=== PATIENT | male | born 1940 | race Caucasian/White ===

== ENCOUNTER 2020-12-13 15:11 | Inpatient (IN) | payer OTHER ==
[2020-12-13] MEDS ORDERED: LACTATED RINGERS SOLUTION 1,000 ML/1,000 ML INFUS.BAG IV STA (16:13)
[2020-12-13] MEDS ORDERED: ACETAMINOPHEN 1000 MG/100 ML VIAL (NON FORMULARY) IVPB ONE (16:14)
[2020-12-13] MEDS ORDERED: ACETAMINOPHEN INJECTION 100 ML IVPB ONE (16:24)
[2020-12-13] MEDS ORDERED: PIPERACILLIN/TAZOB 4.5 GM 4.5 GM in DEXTROSE 5%-WATER 100 ML IVPB ONE (16:50)
[2020-12-13] MEDS ORDERED: VANCOMYCIN 1,000 MG in DEXTROSE 5%-WATER - 250 ML IVPB ONE (16:50)
[2020-12-13 17:00] LABS: LACTIC ACID 2.6 mmol/L (0.4-2.0)
[2020-12-13 17:05] LABS: EPI CELLS 12 /uL (0-25.1); HYALINE CASTS 2 /uL (0-3.1); URINE APPEARANCE CLEAR; URINE BACTERIA 63 /uL (0-1359); URINE BILIRUBIN NEGATIVE (NEGATIVE); URINE COLOR YELLOW; URINE GLUCOSE (UA) NEGATIVE (NEGATIVE); URINE KETONE TRACE (NEGATIVE); URINE LEUK ESTERASE NEGATIVE (NEGATIVE); URINE NITRITE NEGATIVE (NEGATIVE); URINE PROTEIN 1+ (NEGATIVE); URINE RBC 13 /uL (0-23.9); URINE UROBILINOGEN 0.2 mg/dL (0.2-1.0); URINE WBC 7 /uL (0-25.8)
[2020-12-13 17:15] LABS: BASO % 0.8 % (0-2.0); HEMATOCRIT 40.9 % (35.4-49); HEMOGLOBIN 13.2 GM/dL (11.7-16.9); LYMPH % 4.9 % (8-40); MCH 27.8 pg (25.7-33.7); MCHC 32.3 g/dl (32.0-35.9); MEAN CELL VOLUME 86.1 fl (80-96); MEAN PLT VOLUME 9.1 fl (7.5-11.1); MONO % 9.2 % (3.8-10.2); NEUT % 85.1 % (42.8-82.8); PLATELET COUNT 87 K/MM3 (134-434); RBC 4.75 M/mm3 (4.00-5.60); RDW 14.1 % (11.9-15.9); WHITE BLOOD COUNT 3.7 K/mm3 (4.0-10.0)
[2020-12-13 17:23] LABS: INR 1.1 (0.83-1.09); PROTHROMBIN TIME (PATIENT) 13.5 SEC (9.7-13.0)
[2020-12-13] MEDS ORDERED: PIPERACILLIN/TAZOB 4.5 GM 4.5 GM/100 ML BAG IVPB ONE (17:23)
[2020-12-13] MEDS ORDERED: VANCOMYCIN 1 GRAM (PRE-DOCKED) 1,000 MG/250 ML BAG IVPB ONE (17:23)
[2020-12-13 17:25] LABS: ACTIVATED PTT 28.7 SECONDS (25.2-36.5)
[2020-12-13 17:39] LABS: CALCIUM 8.4 mg/dL (8.5-10.1)
[2020-12-13 17:40] LABS: ALBUMIN 3.5 g/dl (3.4-5.0); BLOOD UREA NITROGEN 63.4 mg/dL (7-18)
[2020-12-13 17:43] LABS: CREATININE 2.6 mg/dL (0.55-1.3)
[2020-12-13 17:44] LABS: BILIRUBIN,TOTAL 0.3 mg/dL (0.2-1); TOT PROT 6.8 g/dl (6.4-8.2)
[2020-12-13] MEDS ORDERED: INSULIN REGULAR HUMAN 100 UNITS/ML *VIAL IVPUSH ONE (18:34)
[2020-12-13] MEDS ORDERED: DEXTROSE 50%-WATER - 25 GM/50 ML VIAL IVPUSH ONE (18:35)
[2020-12-13] MEDS ORDERED: DEXTROSE 50%-WATER 25 GM/50 ML DISP.SYRIN ONE (18:59)
[2020-12-13] MEDS ORDERED: SODIUM CHLORIDE 0.9% 500 ML INFUS.BAG IV ONE (19:32)
[2020-12-13 20:42] LABS: CALCIUM 7.8 mg/dL (8.5-10.1)
[2020-12-13 20:43] LABS: BLOOD UREA NITROGEN 63.7 mg/dL (7-18)
[2020-12-13 20:46] LABS: CREATININE 2.7 mg/dL (0.55-1.3)
[2020-12-13 20:53] LABS: YEAST NEGATIVE (NEGATIVE)
[2020-12-13] MEDS ORDERED: SODIUM CHLORIDE 1,000 ML IV SCH (22:15)
[2020-12-13] MEDS ORDERED: PIPERACILLIN/TAZOB 2.25 GM 2.25 GM in DEXTROSE 5%-WATER - 50 ML IVPB SCH (22:45)
[2020-12-13] MEDS: INSULIN SLIDING SCALE (NOVOLOG) 1 VIAL SQ SCH (22:53)
[2020-12-13] MEDS ORDERED: DEXTROSE 5%-WATER - 50 ML IVPB ONE (23:02)
[2020-12-13] MEDS ORDERED: PIPERACILLIN/TAZOBACTAM 2.25 GM VIAL IVPB ONE (23:02)
[2020-12-14] MEDS: PIPERACILLIN/TAZOB 2.25 GM 2.25 GM in DEXTROSE 5%-WATER - 50 ML IVPB SCH ×3 (00:30→17:54)
[2020-12-14] MEDS: HEPARIN NA (PORCINE) 5,000 UNITS/ML 1ML VIAL SQ SCH ×4 (01:23→21:54)
[2020-12-14] MEDS ORDERED: PIPERACILLIN/TAZOB 4.5 GM 4.5 GM in DEXTROSE 5%-WATER 100 ML IVPB SCH (02:00)
[2020-12-14] MEDS ORDERED: ACETAMINOPHEN 1000 MG/100 ML VIAL (NON FORMULARY) IVPB ONE (02:13)
[2020-12-14] MEDS ORDERED: ACETAMINOPHEN INJECTION 100 ML IVPB ONE (02:20)
[2020-12-14] MEDS ORDERED: DEXTROSE 5%-WATER - 50 ML IVPB ONE ×3 (05:15→17:43)
[2020-12-14] MEDS ORDERED: PIPERACILLIN/TAZOBACTAM 2.25 GM VIAL IVPB ONE ×3 (05:15→17:43)
[2020-12-14] MEDS: INSULIN SLIDING SCALE (NOVOLOG) 1 VIAL SQ SCH ×4 (06:07→21:54)
[2020-12-14 07:46] LABS: BASO % 0.3 % (0-2.0); EOS % 0.1 % (0-4.5); HEMATOCRIT 38.5 % (35.4-49); HEMOGLOBIN 12.6 GM/dL (11.7-16.9); LYMPH % 9.9 % (8-40); MCH 28.2 pg (25.7-33.7); MCHC 32.8 g/dl (32.0-35.9); MEAN CELL VOLUME 85.8 fl (80-96); MEAN PLT VOLUME 9.6 fl (7.5-11.1); MONO % 9.5 % (3.8-10.2); NEUT % 80.2 % (42.8-82.8); PLATELET COUNT 90 K/MM3 (134-434); RBC 4.49 M/mm3 (4.00-5.60); RDW 13.8 % (11.9-15.9)
[2020-12-14 08:03] LABS: CALCIUM 7.8 mg/dL (8.5-10.1)
[2020-12-14 08:04] LABS: ALBUMIN 3.2 g/dl (3.4-5.0); BLOOD UREA NITROGEN 54.5 mg/dL (7-18); MAGNESIUM 1.4 mg/dL (1.8-2.4)
[2020-12-14 08:07] LABS: CREATININE 2.6 mg/dL (0.55-1.3); PHOSPHOROUS 2.6 mg/dL (2.5-4.9)
[2020-12-14 08:09] LABS: BILIRUBIN,TOTAL 0.5 mg/dL (0.2-1)
[2020-12-14] MEDS ORDERED: SODIUM CHLORIDE 1,000 ML IV SCH (11:20)
[2020-12-14] MEDS: CHOLECALCIFEROL (VIT D3) 400 UNIT (10 MCG) TABLET PO SCH (11:37)
[2020-12-14] MEDS: ZINC SULFATE 220 MG CAPSULE (FP) PO SCH (11:37)
[2020-12-14] MEDS: ASCORBIC ACID 500 MG TABLET (FP) PO SCH ×2 (11:38→21:54)
[2020-12-14] MEDS: ACETAMINOPHEN 325 MG TABLET (FP) PO PRN (22:07)
[2020-12-14] MEDS ORDERED: PIPERACILLIN/TAZOB 2.25 GM 2.25 GM in DEXTROSE 5%-WATER - 50 ML IVPB SCH (22:45)
[2020-12-15] MEDS ORDERED: PIPERACILLIN/TAZOBACTAM 2.25 GM VIAL IVPB ONE ×3 (00:55→17:49)
[2020-12-15] MEDS ORDERED: DEXTROSE 5%-WATER - 50 ML IVPB ONE ×3 (00:56→17:49)
[2020-12-15] MEDS: PIPERACILLIN/TAZOB 2.25 GM 2.25 GM in DEXTROSE 5%-WATER - 50 ML IVPB SCH ×3 (01:13→18:21)
[2020-12-15] MEDS: HEPARIN NA (PORCINE) 5,000 UNITS/ML 1ML VIAL SQ SCH (05:58)
[2020-12-15] MEDS: INSULIN SLIDING SCALE (NOVOLOG) 1 VIAL SQ SCH ×4 (06:02→21:56)
[2020-12-15 08:45] LABS: BASO % 0.1 % (0-2.0); HEMATOCRIT 40.1 % (35.4-49); HEMOGLOBIN 13.2 GM/dL (11.7-16.9); MCH 28.2 pg (25.7-33.7); MEAN CELL VOLUME 85.3 fl (80-96); MEAN PLT VOLUME 8.8 fl (7.5-11.1); MONO % 7.8 % (3.8-10.2); NEUT % 81.1 % (42.8-82.8); PLATELET COUNT 109 K/MM3 (134-434); RDW 13.8 % (11.9-15.9); WHITE BLOOD COUNT 3.9 K/mm3 (4.0-10.0)
[2020-12-15 09:21] LABS: BLOOD UREA NITROGEN 39.9 mg/dL (7-18); CALCIUM 8.5 mg/dL (8.5-10.1)
[2020-12-15 09:24] LABS: CREATININE 2.6 mg/dL (0.55-1.3)
[2020-12-15 09:25] LABS: BILIRUBIN,TOTAL 0.4 mg/dL (0.2-1); TOT PROT 6.2 g/dl (6.4-8.2)
[2020-12-15] MEDS ORDERED: PT OWN MED DRAWER 7, Y5N ONE ×2 (10:21→13:52)
[2020-12-15] MEDS: CHOLECALCIFEROL (VIT D3) 400 UNIT (10 MCG) TABLET PO SCH (10:32)
[2020-12-15] MEDS: ASCORBIC ACID 500 MG TABLET (FP) PO SCH ×2 (10:32→21:54)
[2020-12-15] MEDS: ZINC SULFATE 220 MG CAPSULE (FP) PO SCH (10:32)
[2020-12-15] MEDS: ACETAMINOPHEN 325 MG TABLET (FP) PO PRN (10:42)
[2020-12-15] MEDS ORDERED: ENOXAPARIN NA (PORCINE) 30 MG/0.3 ML DISP.SYRIN SQ SCH (13:15)
[2020-12-15] MEDS ORDERED: MAGNESIUM 2GM/50ML STERILE WATER IVPB IVPB ONE (13:30)
[2020-12-15] MEDS: ENOXAPARIN NA (PORCINE) 30 MG/0.3 ML DISP.SYRIN SQ SCH (14:22)
[2020-12-15] MEDS: SODIUM CHLORIDE 1,000 ML IV SCH (15:00)
[2020-12-15] MEDS: DEXAMETHASONE SOD PHOSPHATE 4 MG/1 ML VIAL IVPUSH SCH (18:20)
[2020-12-16] MEDS ORDERED: DEXTROSE 5%-WATER - 50 ML IVPB ONE ×3 (00:38→17:29)
[2020-12-16] MEDS ORDERED: PIPERACILLIN/TAZOBACTAM 2.25 GM VIAL IVPB ONE ×3 (00:38→17:28)
[2020-12-16] MEDS: PIPERACILLIN/TAZOB 2.25 GM 2.25 GM in DEXTROSE 5%-WATER - 50 ML IVPB SCH ×3 (01:22→18:02)
[2020-12-16] MEDS: SODIUM CHLORIDE 1,000 ML IV SCH ×2 (04:39→19:00)
[2020-12-16] MEDS: INSULIN SLIDING SCALE (NOVOLOG) 1 VIAL SQ SCH ×4 (06:06→22:22)
[2020-12-16] MEDS ORDERED: PT OWN MED DRAWER 7, Y5N ONE (10:17)
[2020-12-16] MEDS: ENOXAPARIN NA (PORCINE) 30 MG/0.3 ML DISP.SYRIN SQ SCH (10:27)
[2020-12-16] MEDS: CHOLECALCIFEROL (VIT D3) 400 UNIT (10 MCG) TABLET PO SCH (10:28)
[2020-12-16] MEDS: ZINC SULFATE 220 MG CAPSULE (FP) PO SCH (10:28)
[2020-12-16] MEDS: ASCORBIC ACID 500 MG TABLET (FP) PO SCH ×2 (10:29→22:09)
[2020-12-16] MEDS: DEXAMETHASONE SOD PHOSPHATE 4 MG/1 ML VIAL IVPUSH SCH (11:40)
[2020-12-16] MEDS: APIXABAN 5 MG TABLET PO SCH (22:09)
[2020-12-17] MEDS ORDERED: PIPERACILLIN/TAZOBACTAM 2.25 GM VIAL IVPB ONE ×4 (01:07→21:22)
[2020-12-17] MEDS ORDERED: DEXTROSE 5%-WATER - 50 ML IVPB ONE ×4 (01:07→21:22)
[2020-12-17] MEDS: PIPERACILLIN/TAZOB 2.25 GM 2.25 GM in DEXTROSE 5%-WATER - 50 ML IVPB SCH ×3 (01:33→18:29)
[2020-12-17] MEDS: SODIUM CHLORIDE 1,000 ML IV SCH (05:41)
[2020-12-17] MEDS: INSULIN SLIDING SCALE (NOVOLOG) 1 VIAL SQ SCH ×4 (06:20→23:22)
[2020-12-17 07:23] LABS: BASO % 0.1 % (0-2.0); HEMATOCRIT 40.4 % (35.4-49); HEMOGLOBIN 13.2 GM/dL (11.7-16.9); LYMPH % 3.4 % (8-40); MCH 28.1 pg (25.7-33.7); MCHC 32.6 g/dl (32.0-35.9); MEAN CELL VOLUME 86.2 fl (80-96); MEAN PLT VOLUME 9.1 fl (7.5-11.1); MONO % 8.1 % (3.8-10.2); NEUT % 88.4 % (42.8-82.8); PLATELET COUNT 197 K/MM3 (134-434); RBC 4.69 M/mm3 (4.00-5.60); RDW 14.3 % (11.9-15.9)
[2020-12-17 07:51] LABS: ALBUMIN 2.6 g/dl (3.4-5.0); BLOOD UREA NITROGEN 43.1 mg/dL (7-18); CREATININE 2.3 mg/dL (0.55-1.3)
[2020-12-17 07:53] LABS: BILIRUBIN,TOTAL 0.3 mg/dL (0.2-1); TOT PROT 6.1 g/dl (6.4-8.2)
[2020-12-17 07:55] LABS: CALCIUM 8.9 mg/dL (8.5-10.1)
[2020-12-17] MEDS: APIXABAN 5 MG TABLET PO SCH ×2 (11:46→22:43)
[2020-12-17] MEDS: ZINC SULFATE 220 MG CAPSULE (FP) PO SCH (11:46)
[2020-12-17] MEDS: ASCORBIC ACID 500 MG TABLET (FP) PO SCH ×2 (11:46→22:43)
[2020-12-17] MEDS: DEXAMETHASONE SOD PHOSPHATE 4 MG/1 ML VIAL IVPUSH SCH (11:46)
[2020-12-17] MEDS ORDERED: PT OWN MED DRAWER 7, Y5N ONE (14:31)
[2020-12-17] MEDS: SODIUM CHLORIDE 0.45% 1,000 ML IV SCH (14:36)
[2020-12-17] MEDS: CHOLECALCIFEROL (VIT D3) 400 UNIT (10 MCG) TABLET PO SCH (14:36)
[2020-12-18] MEDS: PIPERACILLIN/TAZOB 2.25 GM 2.25 GM in DEXTROSE 5%-WATER - 50 ML IVPB SCH ×3 (02:08→18:26)
[2020-12-18] MEDS: SODIUM CHLORIDE 0.45% 1,000 ML IV SCH ×2 (02:12→22:26)
[2020-12-18] MEDS: INSULIN SLIDING SCALE (NOVOLOG) 1 VIAL SQ SCH ×4 (06:00→22:29)
[2020-12-18] MEDS ORDERED: PIPERACILLIN/TAZOBACTAM 2.25 GM VIAL IVPB ONE ×2 (10:31→18:12)
[2020-12-18] MEDS ORDERED: DEXTROSE 5%-WATER - 50 ML IVPB ONE ×2 (10:32→18:12)
[2020-12-18] MEDS: ZINC SULFATE 220 MG CAPSULE (FP) PO SCH (10:37)
[2020-12-18] MEDS: DEXAMETHASONE SOD PHOSPHATE 4 MG/1 ML VIAL IVPUSH SCH (10:37)
[2020-12-18] MEDS: ASCORBIC ACID 500 MG TABLET (FP) PO SCH ×2 (10:37→22:25)
[2020-12-18] MEDS: APIXABAN 5 MG TABLET PO SCH ×2 (10:37→22:25)
[2020-12-18] MEDS ORDERED: PT OWN MED DRAWER 7, Y5N ONE ×2 (18:28→19:25)
[2020-12-18] MEDS: CHOLECALCIFEROL (VIT D3) 400 UNIT (10 MCG) TABLET PO SCH (18:31)
[2020-12-19] MEDS ORDERED: DEXTROSE 5%-WATER - 50 ML IVPB ONE ×3 (01:35→17:37)
[2020-12-19] MEDS ORDERED: PIPERACILLIN/TAZOBACTAM 2.25 GM VIAL IVPB ONE ×3 (01:35→17:37)
[2020-12-19] MEDS: PIPERACILLIN/TAZOB 2.25 GM 2.25 GM in DEXTROSE 5%-WATER - 50 ML IVPB SCH ×3 (01:49→17:42)
[2020-12-19] MEDS: INSULIN SLIDING SCALE (NOVOLOG) 1 VIAL SQ SCH ×4 (06:34→21:30)
[2020-12-19] MEDS: SODIUM CHLORIDE 0.45% 1,000 ML IV SCH ×2 (07:01→12:25)
[2020-12-19 08:20] LABS: BASO % 0.1 % (0-2.0); HEMOGLOBIN 13.3 GM/dL (11.7-16.9); LYMPH % 1.6 % (8-40); MCH 27.9 pg (25.7-33.7); MCHC 32.4 g/dl (32.0-35.9); MEAN CELL VOLUME 86.2 fl (80-96); MEAN PLT VOLUME 9.3 fl (7.5-11.1); NEUT % 85.3 % (42.8-82.8); PLATELET COUNT 255 K/MM3 (134-434); RBC 4.76 M/mm3 (4.00-5.60); RDW 14.6 % (11.9-15.9); WHITE BLOOD COUNT 11.1 K/mm3 (4.0-10.0)
[2020-12-19 08:46] LABS: CALCIUM 8.8 mg/dL (8.5-10.1)
[2020-12-19 08:47] LABS: BLOOD UREA NITROGEN 33.8 mg/dL (7-18)
[2020-12-19 08:50] LABS: CREATININE 1.7 mg/dL (0.55-1.3)
[2020-12-19 08:51] LABS: BILIRUBIN,TOTAL 0.5 mg/dL (0.2-1); TOT PROT 6.6 g/dl (6.4-8.2)
[2020-12-19] MEDS: CHOLECALCIFEROL (VIT D3) 400 UNIT (10 MCG) TABLET PO SCH (09:51)
[2020-12-19] MEDS: DEXAMETHASONE SOD PHOSPHATE 4 MG/1 ML VIAL IVPUSH SCH (09:51)
[2020-12-19] MEDS: ASCORBIC ACID 500 MG TABLET (FP) PO SCH ×2 (09:53→21:25)
[2020-12-19] MEDS: ZINC SULFATE 220 MG CAPSULE (FP) PO SCH (09:53)
[2020-12-19] MEDS: APIXABAN 5 MG TABLET PO SCH ×2 (09:53→21:25)
[2020-12-19] MEDS ORDERED: AMINO ACIDS 4.25%/D5W 2,000 ML IV SCH (14:15)
[2020-12-19] MEDS ORDERED: AMINO ACIDS 4.25%/D5W 1,000 ML IV SCH (15:28)
[2020-12-20] MEDS: INSULIN SLIDING SCALE (NOVOLOG) 1 VIAL SQ SCH ×4 (06:21→21:07)
[2020-12-20 08:20] LABS: CALCIUM 9.6 mg/dL (8.5-10.1)
[2020-12-20 08:21] LABS: ALBUMIN 3.1 g/dl (3.4-5.0); BLOOD UREA NITROGEN 33.7 mg/dL (7-18)
[2020-12-20 08:24] LABS: CREATININE 1.5 mg/dL (0.55-1.3)
[2020-12-20 08:26] LABS: BILIRUBIN,TOTAL 0.5 mg/dL (0.2-1); TOT PROT 6.9 g/dl (6.4-8.2)
[2020-12-20] MEDS ORDERED: ACETAMINOPHEN 1000 MG/100 ML VIAL (NON FORMULARY) IVPB ONE (10:00)
[2020-12-20] MEDS: DEXAMETHASONE SOD PHOSPHATE 4 MG/1 ML VIAL IVPUSH SCH (10:05)
[2020-12-20] MEDS: APIXABAN 5 MG TABLET PO SCH ×2 (10:05→11:29)
[2020-12-20] MEDS: ZINC SULFATE 220 MG CAPSULE (FP) PO SCH (11:12)
[2020-12-20] MEDS: CHOLECALCIFEROL (VIT D3) 400 UNIT (10 MCG) TABLET PO SCH (11:12)
[2020-12-20] MEDS: ASCORBIC ACID 500 MG TABLET (FP) PO SCH ×2 (11:12→21:03)
[2020-12-20] MEDS ORDERED: AMINO ACIDS 4.25%/D5W 1,000 ML IV SCH (12:26)
[2020-12-20] MEDS: AMINO ACIDS 4.25%/D5W 1,000 ML IV SCH (13:35)
[2020-12-20] MEDS: SODIUM BICARBONATE 650 MG TABLET PO SCH ×2 (15:20→21:03)
[2020-12-20] MEDS ORDERED: ENOXAPARIN NA (PORCINE) 60 MG/0.6 ML DISP.SYRIN SQ SCH ×2 (15:30→15:45)
[2020-12-20] MEDS: SODIUM BICARBONATE 8.4% - 150 MEQ in DEXTROSE 5%-WATER - 1,000 ML IV SCH (15:30)
[2020-12-20] MEDS: ACETAMINOPHEN 325 MG TABLET (FP) PO PRN (21:03)
[2020-12-21] MEDS: SODIUM BICARBONATE 8.4% - 150 MEQ in DEXTROSE 5%-WATER - 1,000 ML IV SCH ×3 (04:59→19:54)
[2020-12-21] MEDS: INSULIN SLIDING SCALE (NOVOLOG) 1 VIAL SQ SCH ×4 (06:25→21:38)
[2020-12-21] MEDS: AMINO ACIDS 4.25%/D5W 1,000 ML IV SCH (06:26)
[2020-12-21] MEDS: DEXAMETHASONE SOD PHOSPHATE 4 MG/1 ML VIAL IVPUSH SCH (09:50)
[2020-12-21] MEDS: CHOLECALCIFEROL (VIT D3) 400 UNIT (10 MCG) TABLET PO SCH (09:51)
[2020-12-21] MEDS: ENOXAPARIN NA (PORCINE) 60 MG/0.6 ML DISP.SYRIN SQ SCH ×2 (09:51→21:38)
[2020-12-21] MEDS: SODIUM BICARBONATE 650 MG TABLET PO SCH (09:51)
[2020-12-21] MEDS: ACETAMINOPHEN 325 MG TABLET (FP) PO PRN ×2 (09:51→18:59)
[2020-12-21] MEDS: ASCORBIC ACID 500 MG TABLET (FP) PO SCH ×2 (09:51→21:38)
[2020-12-21] MEDS: ZINC SULFATE 220 MG CAPSULE (FP) PO SCH (09:51)
[2020-12-21] MEDS ORDERED: AMINO ACIDS 4.25%/D5W 1,000 ML IV SCH (12:26)
[2020-12-21 12:46] LABS: BLOOD UREA NITROGEN 39.6 mg/dL (7-18); CALCIUM 8.8 mg/dL (8.5-10.1)
[2020-12-21 12:53] LABS: CREATININE 1.5 mg/dL (0.55-1.3)
[2020-12-22] MEDS: AMINO ACIDS 4.25%/D5W 1,000 ML IV SCH (01:52)
[2020-12-22] MEDS ORDERED: PT OWN MED DRAWER 7, Y5N ONE ×3 (02:15→21:31)
[2020-12-22] MEDS: SODIUM BICARBONATE 8.4% - 150 MEQ in DEXTROSE 5%-WATER - 1,000 ML IV SCH (05:49)
[2020-12-22] MEDS: INSULIN SLIDING SCALE (NOVOLOG) 1 VIAL SQ SCH ×4 (06:08→22:33)
[2020-12-22] MEDS: DEXAMETHASONE SOD PHOSPHATE 4 MG/1 ML VIAL IVPUSH SCH (10:47)
[2020-12-22] MEDS: ASCORBIC ACID 500 MG TABLET (FP) PO SCH ×2 (10:48→22:33)
[2020-12-22] MEDS: ENOXAPARIN NA (PORCINE) 60 MG/0.6 ML DISP.SYRIN SQ SCH ×2 (10:48→22:33)
[2020-12-22] MEDS: CHOLECALCIFEROL (VIT D3) 400 UNIT (10 MCG) TABLET PO SCH (10:48)
[2020-12-22] MEDS: ZINC SULFATE 220 MG CAPSULE (FP) PO SCH (10:48)
[2020-12-22] MEDS ORDERED: SODIUM BICARBONATE 8.4% 50 MEQ/50 ML VIAL IVPUSH ONE (13:55)
[2020-12-22] MEDS: SODIUM BICARBONATE 8.4% - 75 MEQ in DEXTROSE 5%-WATER - 1,000 ML IV SCH ×2 (14:37→17:39)
[2020-12-22 16:34] LABS: BLOOD UREA NITROGEN 31.4 mg/dL (7-18); CALCIUM 8.4 mg/dL (8.5-10.1)
[2020-12-22 16:38] LABS: CREATININE 1.5 mg/dL (0.55-1.3)
[2020-12-22 16:39] LABS: BILIRUBIN,TOTAL 0.6 mg/dL (0.2-1); TOT PROT 5.6 g/dl (6.4-8.2)
[2020-12-22 16:50] LABS: ALBUMIN 2.4 g/dl (3.4-5.0)
[2020-12-23] MEDS: SODIUM BICARBONATE 8.4% - 75 MEQ in DEXTROSE 5%-WATER - 1,000 ML IV SCH (03:05)
[2020-12-23] MEDS: INSULIN SLIDING SCALE (NOVOLOG) 1 VIAL SQ SCH ×4 (06:11→22:00)
[2020-12-23] MEDS: ENOXAPARIN NA (PORCINE) 60 MG/0.6 ML DISP.SYRIN SQ SCH ×2 (11:10→21:43)
[2020-12-23] MEDS: CHOLECALCIFEROL (VIT D3) 400 UNIT (10 MCG) TABLET PO SCH (11:10)
[2020-12-23] MEDS: DEXAMETHASONE SOD PHOSPHATE 4 MG/1 ML VIAL IVPUSH SCH (11:10)
[2020-12-23] MEDS: ZINC SULFATE 220 MG CAPSULE (FP) PO SCH (11:10)
[2020-12-23] MEDS: ASCORBIC ACID 500 MG TABLET (FP) PO SCH ×2 (11:10→21:43)
[2020-12-23] MEDS: POTASSIUM CHLORIDE 10 MEQ in AMINO ACIDS 4.25%/D5W 1,000 ML IV SCH (16:00)
[2020-12-24] MEDS: INSULIN SLIDING SCALE (NOVOLOG) 1 VIAL SQ SCH ×4 (06:22→21:39)
[2020-12-24 08:23] LABS: HEMATOCRIT 36.8 % (35.4-49); HEMOGLOBIN 11.9 GM/dL (11.7-16.9); MCH 27.3 pg (25.7-33.7); MCHC 32.5 g/dl (32.0-35.9); MEAN CELL VOLUME 84.2 fl (80-96); MEAN PLT VOLUME 8.7 fl (7.5-11.1); PLATELET COUNT 325 K/MM3 (134-434); RBC 4.37 M/mm3 (4.00-5.60); RDW 13.6 % (11.9-15.9); WHITE BLOOD COUNT 17.5 K/mm3 (4.0-10.0)
[2020-12-24 08:55] LABS: CALCIUM 9.1 mg/dL (8.5-10.1); MAGNESIUM 1.7 mg/dL (1.8-2.4)
[2020-12-24 08:56] LABS: ALBUMIN 2.6 g/dl (3.4-5.0); BLOOD UREA NITROGEN 34.2 mg/dL (7-18)
[2020-12-24 08:59] LABS: PHOSPHOROUS 2.3 mg/dL (2.5-4.9)
[2020-12-24 09:00] LABS: BILIRUBIN,TOTAL 0.6 mg/dL (0.2-1); CREATININE 1.3 mg/dL (0.55-1.3)
[2020-12-24] MEDS: POTASSIUM CHLORIDE 10 MEQ in AMINO ACIDS 4.25%/D5W 1,000 ML IV SCH (11:37)
[2020-12-24] MEDS: ENOXAPARIN NA (PORCINE) 60 MG/0.6 ML DISP.SYRIN SQ SCH ×2 (11:38→21:36)
[2020-12-24] MEDS: ZINC SULFATE 220 MG CAPSULE (FP) PO SCH (11:38)
[2020-12-24] MEDS: CHOLECALCIFEROL (VIT D3) 400 UNIT (10 MCG) TABLET PO SCH (11:38)
[2020-12-24] MEDS: DEXAMETHASONE SOD PHOSPHATE 4 MG/1 ML VIAL IVPUSH SCH (11:38)
[2020-12-24] MEDS: ASCORBIC ACID 500 MG TABLET (FP) PO SCH ×2 (11:39→21:36)
[2020-12-24] MEDS ORDERED: MAGNESIUM SULF 50% (8.12 MEQ/2 ML-1 GM VIAL) IVPB ONE (12:54)
[2020-12-25] MEDS: POTASSIUM CHLORIDE 10 MEQ in AMINO ACIDS 4.25%/D5W 1,000 ML IV SCH ×3 (00:14→15:00)
[2020-12-25] MEDS: INSULIN SLIDING SCALE (NOVOLOG) 1 VIAL SQ SCH ×4 (06:06→22:06)
[2020-12-25] MEDS: DEXAMETHASONE SOD PHOSPHATE 4 MG/1 ML VIAL IVPUSH SCH (10:28)
[2020-12-25] MEDS: ASCORBIC ACID 500 MG TABLET (FP) PO SCH ×2 (10:29→21:57)
[2020-12-25] MEDS: ZINC SULFATE 220 MG CAPSULE (FP) PO SCH (10:29)
[2020-12-25] MEDS: ENOXAPARIN NA (PORCINE) 60 MG/0.6 ML DISP.SYRIN SQ SCH ×2 (10:29→21:56)
[2020-12-25] MEDS: CHOLECALCIFEROL (VIT D3) 400 UNIT (10 MCG) TABLET PO SCH (10:29)
[2020-12-25] MEDS ORDERED: LORazepam 2 MG/ML SDV VIAL IVPUSH ONE (17:12)
[2020-12-25] MEDS: BACITRACIN 15 GM TUBE TOPICAL OINTMENT TP SCH (21:57)
[2020-12-26] MEDS ORDERED: LORazepam 2 MG/ML SDV VIAL IVPUSH ONE (05:09)
[2020-12-26] MEDS: INSULIN SLIDING SCALE (NOVOLOG) 1 VIAL SQ SCH ×4 (06:13→21:58)
[2020-12-26 07:37] LABS: BASO % 0.1 % (0-2.0); EOS % 0.1 % (0-4.5); HEMATOCRIT 34.7 % (35.4-49); HEMOGLOBIN 11.1 GM/dL (11.7-16.9); MCH 27.5 pg (25.7-33.7); MCHC 32.1 g/dl (32.0-35.9); MEAN CELL VOLUME 85.8 fl (80-96); MEAN PLT VOLUME 8.6 fl (7.5-11.1); MONO % 2.8 % (3.8-10.2); PLATELET COUNT 194 K/MM3 (134-434); RBC 4.04 M/mm3 (4.00-5.60); RDW 13.7 % (11.9-15.9); WHITE BLOOD COUNT 15.1 K/mm3 (4.0-10.0)
[2020-12-26 07:52] LABS: CALCIUM 9.7 mg/dL (8.5-10.1)
[2020-12-26 07:53] LABS: ALBUMIN 2.2 g/dl (3.4-5.0)
[2020-12-26 07:56] LABS: CREATININE 1.4 mg/dL (0.55-1.3)
[2020-12-26 07:57] LABS: BILIRUBIN,TOTAL 0.8 mg/dL (0.2-1); TOT PROT 5.5 g/dl (6.4-8.2)
[2020-12-26] MEDS ORDERED: ACETAMINOPHEN 650 MG SUPP.RECT PR PRN (09:47)
[2020-12-26] MEDS ORDERED: PT OWN MED DRAWER 7, Y5N ONE (10:13)
[2020-12-26] MEDS: DEXAMETHASONE SOD PHOSPHATE 4 MG/1 ML VIAL IVPUSH SCH (10:20)
[2020-12-26] MEDS: ENOXAPARIN NA (PORCINE) 60 MG/0.6 ML DISP.SYRIN SQ SCH ×2 (10:21→21:49)
[2020-12-26] MEDS: ASCORBIC ACID 500 MG TABLET (FP) PO SCH ×3 (10:21→21:50)
[2020-12-26] MEDS: ZINC SULFATE 220 MG CAPSULE (FP) PO SCH ×2 (10:21→11:16)
[2020-12-26] MEDS: CHOLECALCIFEROL (VIT D3) 400 UNIT (10 MCG) TABLET PO SCH ×2 (10:21→11:16)
[2020-12-26] MEDS ORDERED: LORazepam 2 MG/ML SDV VIAL IVPUSH PRN (10:22)
[2020-12-26] MEDS: BACITRACIN 15 GM TUBE TOPICAL OINTMENT TP SCH ×2 (10:53→21:49)
[2020-12-26 11:13] LABS: ANISOCYTOSIS 1+; MACROCYTOSIS 1+; OVALOCYTE 1+; PLATELET ESTIMATE NORMAL
[2020-12-26] MEDS ORDERED: FUROSEMIDE 40 MG/4 ML INJECTABLE VIAL IVPUSH ONE (11:30)
[2020-12-26] MEDS ORDERED: CEFTRIAXONE 1 GM in DEXTROSE 5%-WATER - 50 ML IVPB ONE (11:30)
[2020-12-26] MEDS ORDERED: DEXTROSE 50%-WATER 25 GM/50 ML DISP.SYRIN ONE (12:08)
[2020-12-26] MEDS ORDERED: cefTRIAXone SODIUM 1 GM VIAL ONE (12:09)
[2020-12-26] MEDS ORDERED: DEXTROSE 5%-WATER - 50 ML IVPB ONE (12:10)
[2020-12-26] MEDS ORDERED: DEXTROSE 50%-WATER - 25 GM/50 ML VIAL IVPUSH ONE (12:15)
[2020-12-26] MEDS ORDERED: AMINO ACIDS 4.25%/D5W 1,000 ML IV SCH (14:00)
[2020-12-26] MEDS ORDERED: TOCILIZUMAB (ACTEMRA) 200 MG/10 ML VIAL IVPB ONE (16:01)
[2020-12-26] MEDS ORDERED: SODIUM CHLORIDE IVPB ONE (17:00)
[2020-12-26] MEDS ORDERED: TOCILIZUMAB IVPB ONE (17:00)
[2020-12-26] MEDS ORDERED: SODIUM CHLORIDE 0.9% 500 ML INFUS.BAG IV ONE (17:29)
[2020-12-26] MEDS: LORazepam 2 MG/ML SDV VIAL IVPUSH PRN (20:00)
[2020-12-27] MEDS: LORazepam 2 MG/ML SDV VIAL IVPUSH PRN ×2 (03:10→12:00)
[2020-12-27] MEDS: INSULIN SLIDING SCALE (NOVOLOG) 1 VIAL SQ SCH ×4 (06:34→22:00)
[2020-12-27] MEDS: BACITRACIN 15 GM TUBE TOPICAL OINTMENT TP SCH (09:36)
[2020-12-27] MEDS: DEXAMETHASONE SOD PHOSPHATE 4 MG/1 ML VIAL IVPUSH SCH (09:37)
[2020-12-27] MEDS: ENOXAPARIN NA (PORCINE) 60 MG/0.6 ML DISP.SYRIN SQ SCH ×2 (09:37→23:42)
[2020-12-27] MEDS: ASCORBIC ACID 500 MG TABLET (FP) PO SCH ×2 (09:41→23:43)
[2020-12-27] MEDS: ZINC SULFATE 220 MG CAPSULE (FP) PO SCH (09:41)
[2020-12-27] MEDS: CHOLECALCIFEROL (VIT D3) 400 UNIT (10 MCG) TABLET PO SCH (09:41)
[2020-12-27] MEDS ORDERED: ACETAMINOPHEN 325 MG TABLET (FP) PO PRN (15:32)
[2020-12-27] MEDS ORDERED: LORazepam 2 MG/ML SDV VIAL IVPUSH PRN (15:32)
[2020-12-27] MEDS ORDERED: DEXMEDETOMIDINE IN 0.9 % NACL 400 MCG/100 ML VIAL IVPB SCH (21:45)
[2020-12-27] MEDS ORDERED: PT OWN MED DRAWER 7, Y5N ONE (21:55)
[2020-12-27] MEDS: MUPIROCIN 2% TOPICAL OINTMENT FOR DECOLONIZATION NS SCH (23:41)
[2020-12-27] MEDS: CHLORHEXIDINE GLUCONATE 4% CLEANSER FOR DECOLONIZATION TP SCH (23:42)
[2020-12-27] MEDS ORDERED: LACTATED RINGERS SOLUTION 1,000 ML/1,000 ML INFUS.BAG IV STA (23:54)
[2020-12-28] MEDS ORDERED: INSULIN (NOVOLOG) ASPART 100 UNITS/ML 10ML VIAL ONE (05:20)
[2020-12-28] MEDS: INSULIN SLIDING SCALE (NOVOLOG) 1 VIAL SQ SCH ×2 (06:36→17:56)
[2020-12-28 07:59] LABS: BASO % 0.1 % (0-2.0); EOS % 1.3 % (0-4.5); LYMPH % 1.4 % (8-40); MCH 27.6 pg (25.7-33.7); MCHC 32.4 g/dl (32.0-35.9); MEAN CELL VOLUME 85.4 fl (80-96); MEAN PLT VOLUME 8.8 fl (7.5-11.1); MONO % 2.2 % (3.8-10.2); PLATELET COUNT 158 K/MM3 (134-434); RBC 4.33 M/mm3 (4.00-5.60); RDW 13.5 % (11.9-15.9); WHITE BLOOD COUNT 9.6 K/mm3 (4.0-10.0)
[2020-12-28 08:05] LABS: ALBUMIN 2.1 g/dl (3.4-5.0); BLOOD UREA NITROGEN 48.7 mg/dL (7-18); CALCIUM 9.3 mg/dL (8.5-10.1)
[2020-12-28 08:09] LABS: CREATININE 1.3 mg/dL (0.55-1.3)
[2020-12-28 08:10] LABS: BILIRUBIN,TOTAL 1.5 mg/dL (0.2-1); TOT PROT 5.5 g/dl (6.4-8.2)
[2020-12-28 09:57] LABS: ANISOCYTOSIS 0; MACROCYTOSIS 0; PLATELET ESTIMATE DECREASED
[2020-12-28] MEDS ORDERED: PT OWN MED DRAWER 7, Y5N ONE (10:20)
[2020-12-28] MEDS: DEXAMETHASONE SOD PHOSPHATE 4 MG/1 ML VIAL IVPUSH SCH (10:24)
[2020-12-28] MEDS: ENOXAPARIN NA (PORCINE) 60 MG/0.6 ML DISP.SYRIN SQ SCH ×2 (10:24→23:00)
[2020-12-28] MEDS: MUPIROCIN 2% TOPICAL OINTMENT FOR DECOLONIZATION NS SCH ×2 (11:08→21:25)
[2020-12-28] MEDS: ASCORBIC ACID 500 MG TABLET (FP) PO SCH ×2 (11:09→21:25)
[2020-12-28] MEDS: CHOLECALCIFEROL (VIT D3) 400 UNIT (10 MCG) TABLET PO SCH (11:09)
[2020-12-28] MEDS: ZINC SULFATE 220 MG CAPSULE (FP) PO SCH (11:09)
[2020-12-28] MEDS ORDERED: MORPHINE SULFATE 2 MG/ML VIAL ONE (16:33)
[2020-12-28] MEDS ORDERED: MORPHINE SULFATE 2 MG/ML VIAL IVPUSH ONE (16:43)
[2020-12-28] MEDS: AMINO ACIDS 4.25%/D5W 1,000 ML IV SCH (17:02)
[2020-12-28] MEDS: PANTOPRAZOLE SODIUM 40 MG VIAL IVPUSH SCH (17:46)
[2020-12-28] MEDS ORDERED: DEXMEDETOMIDINE IN 0.9 % NACL 400 MCG/100 ML VIAL IVPB SCH (19:45)
[2020-12-28] MEDS ORDERED: VASOPRESSIN 20 UNITS/ML VIAL IV ONE (19:56)
[2020-12-28] MEDS: CHLORHEXIDINE GLUCONATE 4% CLEANSER FOR DECOLONIZATION TP SCH (21:25)
[2020-12-29] MEDS: INSULIN SLIDING SCALE (NOVOLOG) 1 VIAL SQ SCH ×4 (01:16→23:00)
[2020-12-29 07:47] LABS: BASO % 0.4 % (0-2.0); EOS % 1.6 % (0-4.5); HEMATOCRIT 40.3 % (35.4-49); HEMOGLOBIN 12.8 GM/dL (11.7-16.9); LYMPH % 1.8 % (8-40); MCH 27.7 pg (25.7-33.7); MCHC 31.9 g/dl (32.0-35.9); MEAN CELL VOLUME 87.1 fl (80-96); MEAN PLT VOLUME 9.3 fl (7.5-11.1); MONO % 2.5 % (3.8-10.2); NEUT % 93.7 % (42.8-82.8); PLATELET COUNT 152 K/MM3 (134-434); RBC 4.63 M/mm3 (4.00-5.60); RDW 13.7 % (11.9-15.9)
[2020-12-29 08:08] LABS: ALBUMIN 2.2 g/dl (3.4-5.0)
[2020-12-29 08:09] LABS: CALCIUM 8.9 mg/dL (8.5-10.1); MAGNESIUM 1.6 mg/dL (1.8-2.4)
[2020-12-29 08:11] LABS: BLOOD UREA NITROGEN 49.1 mg/dL (7-18); CREATININE 1.4 mg/dL (0.55-1.3)
[2020-12-29 08:12] LABS: PHOSPHOROUS 2.7 mg/dL (2.5-4.9)
[2020-12-29 08:13] LABS: BILIRUBIN,TOTAL 0.4 mg/dL (0.2-1); TOT PROT 5.2 g/dl (6.4-8.2)
[2020-12-29] MEDS ORDERED: MAGNESIUM SULF 50% (8.12 MEQ/2 ML-1 GM VIAL) IVPB ONE (08:30)
[2020-12-29 09:58] LABS: ANISOCYTOSIS 0; MACROCYTOSIS 0; PLATELET ESTIMATE DECREASED
[2020-12-29] MEDS: PANTOPRAZOLE SODIUM 40 MG VIAL IVPUSH SCH (10:37)
[2020-12-29] MEDS: MUPIROCIN 2% TOPICAL OINTMENT FOR DECOLONIZATION NS SCH (10:37)
[2020-12-29] MEDS: DEXAMETHASONE SOD PHOSPHATE 4 MG/1 ML VIAL IVPUSH SCH (10:38)
[2020-12-29] MEDS: ZINC SULFATE 220 MG CAPSULE (FP) PO SCH (10:38)
[2020-12-29] MEDS: CHOLECALCIFEROL (VIT D3) 400 UNIT (10 MCG) TABLET PO SCH (11:00)
[2020-12-29] MEDS: ENOXAPARIN NA (PORCINE) 60 MG/0.6 ML DISP.SYRIN SQ SCH (11:04)
[2020-12-29] MEDS ORDERED: DEXTROSE 50%-WATER - 25 GM/50 ML VIAL IVPUSH ONE (11:09)
[2020-12-29] MEDS ORDERED: DEXTROSE 50%-WATER 25 GM/50 ML DISP.SYRIN ONE (11:11)
[2020-12-29] MEDS ORDERED: DEXMEDETOMIDINE IN 0.9 % NACL 400 MCG/100 ML VIAL IVPB SCH (11:30)
[2020-12-29] MEDS: AMINO ACIDS 4.25%/D5W 1,000 ML IV SCH (12:00)
[2020-12-29] MEDS: ASCORBIC ACID 500 MG TABLET (FP) PO SCH (14:33)
[2020-12-29 16:26] LABS: ARTERIAL BLD GAS O2 SATURATION 68.7 mmHg (95-98); ARTERIAL BLOOD GAS BASE EXCESS -5.9 mmol/L (-2-2); ARTERIAL BLOOD GAS pH 7.409 (7.350-7.450)
[2020-12-29 16:34] LABS: ALLENS TEST POSITIVE
[2020-12-29 16:35] LABS: ARTERIAL BLOOD GAS PO2 34.9 mmHg (80-100)
[2020-12-29] MEDS ORDERED: RAPID SEQUENCE INTUBATION KIT NR ONE (20:19)
[2020-12-29] MEDS ORDERED: FENTANYL IVPB 500 MCG/100 ML BAG IVPB ONE (20:52)
[2020-12-29] MEDS: FENTANYL IVPB 500 MCG/100 ML BAG IVPB SCH (21:00)
[2020-12-29] MEDS ORDERED: PROPOFOL 1,000,000 MCG/100 ML VIAL ONE (21:09)
[2020-12-29 22:30] LABS: ARTERIAL BLD GAS O2 SATURATION 89.6 mmHg (95-98); ARTERIAL BLOOD GAS BASE EXCESS -6.9 mmol/L (-2-2)
[2020-12-29 22:34] LABS: VENT MODE AC; VENT RATE 16
[2020-12-30] MEDS: ASCORBIC ACID 500 MG TABLET (FP) PO SCH ×3 (00:51→22:29)
[2020-12-30] MEDS: CHLORHEXIDINE GLUCONATE 4% CLEANSER FOR DECOLONIZATION TP SCH ×2 (00:52→23:31)
[2020-12-30] MEDS: MUPIROCIN 2% TOPICAL OINTMENT FOR DECOLONIZATION NS SCH ×3 (00:52→23:30)
[2020-12-30] MEDS: PROPOFOL 1,000,000 MCG/100 ML VIAL IVPB SCH ×2 (00:53→23:30)
[2020-12-30] MEDS: VASOPRESSIN 40 UNITS in SODIUM CHLORIDE 98 ML IVPB SCH (00:57)
[2020-12-30] MEDS ORDERED: DOPAMINE 400 MG/D5W - 400,000 MCG/250 ML INFUS.BAG IVPB ONE (01:06)
[2020-12-30] MEDS ORDERED: MIDAZOLAM IN 0.9 % SOD.CHLORID 1 MG/1 ML PLAST..BAG ONE (01:54)
[2020-12-30] MEDS ORDERED: METOPROLOL TARTRATE 5 MG/5 ML VIAL IVPUSH ONE (02:15)
[2020-12-30] MEDS: MIDAZOLAM IN 0.9 % SOD.CHLORID 100 MG/100 ML PLAST..BAG IVPB SCH ×3 (03:00→19:02)
[2020-12-30] MEDS ORDERED: ATROPINE SULFATE 1 MG/10 ML DISP.SYRIN ONE (03:27)
[2020-12-30 03:43] LABS: HIV INTERPRETATION NEGATIVE (NEGATIVE)
[2020-12-30] MEDS: DOPAMINE 400 MG/D5W - 400,000 MCG/250 ML INFUS.BAG IVPB SCH (03:45)
[2020-12-30] MEDS: ENOXAPARIN NA (PORCINE) 60 MG/0.6 ML DISP.SYRIN SQ SCH ×3 (04:24→22:30)
[2020-12-30] MEDS: NOREPINEPHRINE NS PREMIX 8,000 MCG/500 ML BAG IVPB SCH (04:30)
[2020-12-30 06:20] LABS: ARTERIAL BLD GAS O2 SATURATION 77.8 mmHg (95-98); ARTERIAL BLOOD GAS BASE EXCESS -4.4 mmol/L (-2-2); ARTERIAL BLOOD GAS PO2 43.4 mmHg (80-100)
[2020-12-30 06:31] LABS: ALLENS TEST POSITIVE
[2020-12-30 06:32] LABS: VENT MODE A/C; VENT RATE 16
[2020-12-30] MEDS: INSULIN SLIDING SCALE (NOVOLOG) 1 VIAL SQ SCH ×4 (07:00→22:27)
[2020-12-30 07:25] LABS: BASO % 0.2 % (0-2.0); EOS % 1.1 % (0-4.5); HEMATOCRIT 37.4 % (35.4-49); HEMOGLOBIN 12.1 GM/dL (11.7-16.9); LYMPH % 1.3 % (8-40); MCH 27.5 pg (25.7-33.7); MCHC 32.3 g/dl (32.0-35.9); MEAN CELL VOLUME 85.3 fl (80-96); MEAN PLT VOLUME 9.9 fl (7.5-11.1); MONO % 2.4 % (3.8-10.2); PLATELET COUNT 175 K/MM3 (134-434); RBC 4.38 M/mm3 (4.00-5.60); RDW 13.5 % (11.9-15.9); WHITE BLOOD COUNT 19.2 K/mm3 (4.0-10.0)
[2020-12-30 07:30] LABS: CALCIUM 9.1 mg/dL (8.5-10.1)
[2020-12-30 07:31] LABS: ALBUMIN 2.4 g/dl (3.4-5.0); BLOOD UREA NITROGEN 53.5 mg/dL (7-18); MAGNESIUM 1.7 mg/dL (1.8-2.4)
[2020-12-30 07:34] LABS: CREATININE 1.6 mg/dL (0.55-1.3); PHOSPHOROUS 2.5 mg/dL (2.5-4.9)
[2020-12-30 07:35] LABS: BILIRUBIN,TOTAL 0.4 mg/dL (0.2-1); TOT PROT 5.4 g/dl (6.4-8.2)
[2020-12-30 09:14] LABS: ANISOCYTOSIS 1+; MACROCYTOSIS 0; OVALOCYTE 1+; PLATELET ESTIMATE NORMAL; TEAR DROP CELLS 1+
[2020-12-30] MEDS ORDERED: VECURONIUM BROMIDE 50 MG/50 ML VIAL IVPUSH ONE (09:44)
[2020-12-30] MEDS: FENTANYL IVPB 500 MCG/100 ML BAG IVPB SCH ×2 (09:51→23:30)
[2020-12-30] MEDS: PANTOPRAZOLE SODIUM 40 MG VIAL IVPUSH SCH (09:56)
[2020-12-30] MEDS: ZINC SULFATE 220 MG CAPSULE (FP) PO SCH (09:58)
[2020-12-30] MEDS: DEXAMETHASONE SOD PHOSPHATE 4 MG/1 ML VIAL IVPUSH SCH (09:58)
[2020-12-30] MEDS ORDERED: RAPID SEQUENCE INTUBATION KIT NR ONE (10:58)
[2020-12-30 11:25] LABS: ARTERIAL BLD GAS O2 SATURATION 79.2 mmHg (95-98); ARTERIAL BLOOD GAS PO2 47.8 mmHg (80-100); ARTERIAL BLOOD GAS pH 7.291 (7.350-7.450)
[2020-12-30 11:29] LABS: ALLENS TEST POSITIVE; VENT MODE AC
[2020-12-30 11:30] LABS: VENT RATE 30
[2020-12-30] MEDS: CHOLECALCIFEROL (VIT D3) 400 UNIT (10 MCG) TABLET PO SCH (12:29)
[2020-12-30] MEDS ORDERED: PT OWN MED DRAWER 7, Y5N ONE (13:09)
[2020-12-30] MEDS: VECURONIUM BROMIDE 100 MG/100 ML BAG IVPB SCH (13:17)
[2020-12-30] MEDS ORDERED: MAGNESIUM SULF 50% (8.12 MEQ/2 ML-1 GM VIAL) IVPB ONE (16:28)
[2020-12-31] MEDS: VASOPRESSIN 40 UNITS in SODIUM CHLORIDE 98 ML IVPB SCH ×2 (02:53→07:35)
[2020-12-31] MEDS: DOPAMINE 400 MG/D5W - 400,000 MCG/250 ML INFUS.BAG IVPB SCH (02:53)
[2020-12-31] MEDS: VECURONIUM BROMIDE 100 MG/100 ML BAG IVPB SCH ×2 (07:35→11:13)
[2020-12-31] MEDS: ASCORBIC ACID 500 MG TABLET (FP) PO SCH ×2 (10:42→23:40)
[2020-12-31] MEDS: ZINC SULFATE 220 MG CAPSULE (FP) PO SCH (10:42)
[2020-12-31] MEDS ORDERED: PT OWN MED DRAWER 7, Y5N ONE ×2 (10:43→14:14)
[2020-12-31] MEDS: PANTOPRAZOLE SODIUM 40 MG VIAL IVPUSH SCH (10:44)
[2020-12-31] MEDS: DEXAMETHASONE SOD PHOSPHATE 4 MG/1 ML VIAL IVPUSH SCH (10:44)
[2020-12-31] MEDS: ENOXAPARIN NA (PORCINE) 60 MG/0.6 ML DISP.SYRIN SQ SCH ×2 (10:45→23:40)
[2020-12-31] MEDS: MUPIROCIN 2% TOPICAL OINTMENT FOR DECOLONIZATION NS SCH ×2 (10:45→22:38)
[2020-12-31] MEDS: NOREPINEPHRINE NS PREMIX 8,000 MCG/500 ML BAG IVPB SCH (11:12)
[2020-12-31] MEDS: MIDAZOLAM IN 0.9 % SOD.CHLORID 100 MG/100 ML PLAST..BAG IVPB SCH ×2 (11:12→16:40)
[2020-12-31] MEDS: FENTANYL IVPB 500 MCG/100 ML BAG IVPB SCH (13:30)
[2020-12-31] MEDS: INSULIN SLIDING SCALE (NOVOLOG) 1 VIAL SQ SCH ×3 (14:13→22:37)
[2020-12-31 14:14] LABS: ALBUMIN 2.4 g/dl (3.4-5.0); BILIRUBIN,TOTAL 0.4 mg/dL (0.2-1); BLOOD UREA NITROGEN 52.7 mg/dL (7-18); CALCIUM 9.2 mg/dL (8.5-10.1); CREATININE 1.5 mg/dL (0.55-1.3); TOT PROT 5.3 g/dl (6.4-8.2)
[2020-12-31] MEDS: CHOLECALCIFEROL (VIT D3) 400 UNIT (10 MCG) TABLET PO SCH (14:14)
[2020-12-31 16:39] LABS: ARTERIAL BLOOD GAS BASE EXCESS -7.8 mmol/L (-2-2)
[2020-12-31 16:41] LABS: ALLENS TEST POSITIVE
[2020-12-31 16:42] LABS: VENT MODE A/C; VENT RATE 30
[2020-12-31] MEDS ORDERED: CALCIUM CHLORIDE 1 GM/10 ML *DISP.SYRIN ONE (21:23)
[2020-12-31] MEDS: CHLORHEXIDINE GLUCONATE 4% CLEANSER FOR DECOLONIZATION TP SCH (23:38)
[2021-01-01 06:26] LABS: ARTERIAL BLD GAS O2 SATURATION 90.4 mmHg (95-98); ARTERIAL BLOOD GAS BASE EXCESS -6.3 mmol/L (-2-2); ARTERIAL BLOOD GAS PO2 63.5 mmHg (80-100); ARTERIAL BLOOD GAS pH 7.309 (7.350-7.450)
[2021-01-01 06:31] LABS: ALLENS TEST POSITIVE; VENT MODE VOL A/C; VENT RATE 30
[2021-01-01 06:56] LABS: BASO % 0.3 % (0-2.0); EOS % 0.1 % (0-4.5); HEMATOCRIT 33.8 % (35.4-49); HEMOGLOBIN 10.7 GM/dL (11.7-16.9); LYMPH % 0.8 % (8-40); MCH 27.1 pg (25.7-33.7); MCHC 31.6 g/dl (32.0-35.9); MEAN CELL VOLUME 85.9 fl (80-96); MEAN PLT VOLUME 9.9 fl (7.5-11.1); MONO % 2.3 % (3.8-10.2); NEUT % 96.5 % (42.8-82.8); PLATELET COUNT 158 K/MM3 (134-434); RBC 3.94 M/mm3 (4.00-5.60); WHITE BLOOD COUNT 18.1 K/mm3 (4.0-10.0)
[2021-01-01 07:21] LABS: CHLORIDE 97 mmol/L (98-107); SODIUM 125 mmol/L (136-145)
[2021-01-01 07:25] LABS: ANION GAP 9 MMOL/L (8-16); BLOOD UREA NITROGEN 42.7 mg/dL (7-18); CALCIUM 7.8 mg/dL (8.5-10.1); CO2 19 mmol/L (21-32); GLUCOSE,RANDOM 423 mg/dL (74-106)
[2021-01-01 07:28] LABS: CREATININE 1.3 mg/dL (0.55-1.3); SGOT/AST 28 U/L (15-37); SGPT/ALT 53 U/L (13-61)
[2021-01-01 07:30] LABS: ALK PHOS 80 U/L (45-117); BILIRUBIN,TOTAL 0.4 mg/dL (0.2-1); TOT PROT 4.3 g/dl (6.4-8.2)
[2021-01-01] MEDS ORDERED: INSULIN (NOVOLOG) ASPART 100 UNITS/ML 10ML VIAL SQ ONE (07:35)
[2021-01-01] MEDS ORDERED: SODIUM CHLORIDE 1,000 ML IV SCH ×3 (08:45→09:00)
[2021-01-01] MEDS ORDERED: INSULIN REGULAR HUMAN 100 UNITS/ML *VIAL IVPUSH ONE (09:00)
[2021-01-01 09:14] LABS: ANISOCYTOSIS 0; MACROCYTOSIS 0; PLATELET ESTIMATE DECREASED; TEAR DROP CELLS 1+
[2021-01-01] MEDS: INSULIN SLIDING SCALE (NOVOLOG) 1 VIAL SQ SCH ×3 (09:39→23:36)
[2021-01-01] MEDS: ASCORBIC ACID 500 MG TABLET (FP) PO SCH ×2 (09:39→23:38)
[2021-01-01] MEDS: FENTANYL IVPB 500 MCG/100 ML BAG IVPB SCH ×2 (09:39→23:38)
[2021-01-01] MEDS: ZINC SULFATE 220 MG CAPSULE (FP) PO SCH (09:39)
[2021-01-01] MEDS: PANTOPRAZOLE SODIUM 40 MG VIAL IVPUSH SCH (09:39)
[2021-01-01] MEDS: CHOLECALCIFEROL (VIT D3) 400 UNIT (10 MCG) TABLET PO SCH (09:39)
[2021-01-01] MEDS: ENOXAPARIN NA (PORCINE) 60 MG/0.6 ML DISP.SYRIN SQ SCH ×2 (09:40→23:38)
[2021-01-01] MEDS: MIDAZOLAM IN 0.9 % SOD.CHLORID 100 MG/100 ML PLAST..BAG IVPB SCH ×2 (10:12→23:42)
[2021-01-01] MEDS: VECURONIUM BROMIDE 100 MG/100 ML BAG IVPB SCH (10:13)
[2021-01-01] MEDS: MUPIROCIN 2% TOPICAL OINTMENT FOR DECOLONIZATION NS SCH (10:13)
[2021-01-01] MEDS: DEXAMETHASONE SOD PHOSPHATE 4 MG/1 ML VIAL IVPUSH SCH (10:13)
[2021-01-01] MEDS: SODIUM CHLORIDE 1,000 ML IV SCH (10:13)
[2021-01-01] MEDS ORDERED: DEXTROSE 50%-WATER 25 GM/50 ML DISP.SYRIN ONE (14:38)
[2021-01-01 20:54] LABS: BLOOD UREA NITROGEN 43.5 mg/dL (7-18); CALCIUM 8.8 mg/dL (8.5-10.1)
[2021-01-01 20:55] LABS: ALBUMIN 2.1 g/dl (3.4-5.0)
[2021-01-01 20:58] LABS: CREATININE 1.2 mg/dL (0.55-1.3)
[2021-01-01 20:59] LABS: BILIRUBIN,TOTAL 0.4 mg/dL (0.2-1); TOT PROT 4.7 g/dl (6.4-8.2)
[2021-01-01] MEDS: CHLORHEXIDINE GLUCONATE 4% CLEANSER FOR DECOLONIZATION TP SCH (23:38)
[2021-01-02] MEDS: INSULIN SLIDING SCALE (NOVOLOG) 1 VIAL SQ SCH ×3 (06:57→23:00)
[2021-01-02] MEDS: FENTANYL IVPB 500 MCG/100 ML BAG IVPB SCH ×2 (06:57→18:34)
[2021-01-02 07:05] LABS: BASO % 0.1 % (0-2.0); EOS % 3.1 % (0-4.5); HEMATOCRIT 34.7 % (35.4-49); HEMOGLOBIN 11.1 GM/dL (11.7-16.9); LYMPH % 1.5 % (8-40); MCH 27.8 pg (25.7-33.7); MCHC 32.1 g/dl (32.0-35.9); MEAN CELL VOLUME 86.6 fl (80-96); MONO % 4.1 % (3.8-10.2); NEUT % 91.2 % (42.8-82.8); PLATELET COUNT 155 K/MM3 (134-434); RDW 13.9 % (11.9-15.9); WHITE BLOOD COUNT 15.4 K/mm3 (4.0-10.0)
[2021-01-02 07:05] LABS: ALLENS TEST POSITIVE; ARTERIAL BLOOD GAS BASE EXCESS -9.2 mmol/L (-2-2); ARTERIAL BLOOD GAS PO2 66.4 mmHg (80-100); ARTERIAL BLOOD GAS pH 7.283 (7.350-7.450)
[2021-01-02 07:06] LABS: VENT MODE A/C; VENT RATE 30
[2021-01-02 07:30] LABS: CALCIUM 8.9 mg/dL (8.5-10.1)
[2021-01-02 07:31] LABS: BLOOD UREA NITROGEN 38.7 mg/dL (7-18)
[2021-01-02 07:34] LABS: ALBUMIN 2.1 g/dl (3.4-5.0)
[2021-01-02 07:36] LABS: BILIRUBIN,TOTAL 0.4 mg/dL (0.2-1); TOT PROT 4.9 g/dl (6.4-8.2)
[2021-01-02] MEDS: MIDAZOLAM IN 0.9 % SOD.CHLORID 100 MG/100 ML PLAST..BAG IVPB SCH (07:55)
[2021-01-02 10:29] LABS: ANISOCYTOSIS 1+; PLATELET ESTIMATE NORMAL
[2021-01-02] MEDS: ASCORBIC ACID 500 MG TABLET (FP) PO SCH ×2 (10:53→22:37)
[2021-01-02] MEDS: ENOXAPARIN NA (PORCINE) 60 MG/0.6 ML DISP.SYRIN SQ SCH ×2 (10:53→22:37)
[2021-01-02] MEDS: PANTOPRAZOLE SODIUM 40 MG VIAL IVPUSH SCH (10:53)
[2021-01-02] MEDS: DEXAMETHASONE SOD PHOSPHATE 4 MG/1 ML VIAL IVPUSH SCH (10:53)
[2021-01-02] MEDS: ZINC SULFATE 220 MG CAPSULE (FP) PO SCH (10:53)
[2021-01-02] MEDS: SODIUM CHLORIDE 1,000 ML IV SCH (10:53)
[2021-01-02] MEDS: CHOLECALCIFEROL (VIT D3) 400 UNIT (10 MCG) TABLET PO SCH (12:00)
[2021-01-02] MEDS ORDERED: PT OWN MED DRAWER 7, Y5N ONE (18:22)
[2021-01-02] MEDS: VASOPRESSIN 40 UNITS in SODIUM CHLORIDE 98 ML IVPB SCH (18:32)
[2021-01-02] MEDS: DOPAMINE 400 MG/D5W - 400,000 MCG/250 ML INFUS.BAG IVPB SCH (18:33)
[2021-01-02] MEDS: VECURONIUM BROMIDE 100 MG/100 ML BAG IVPB SCH (18:34)
[2021-01-02] MEDS: CHLORHEXIDINE GLUCONATE 4% CLEANSER FOR DECOLONIZATION TP SCH (22:38)
[2021-01-02] MEDS: NOREPINEPHRINE NS PREMIX 8,000 MCG/500 ML BAG IVPB SCH (23:00)
[2021-01-02] MEDS ORDERED: NOREPINEPHRINE BITARTRATE 8,000 MCG/500 ML BAG IVPB ONE (23:54)
[2021-01-03] MEDS: FENTANYL IVPB 500 MCG/100 ML BAG IVPB SCH ×4 (04:25→23:16)
[2021-01-03] MEDS: MIDAZOLAM IN 0.9 % SOD.CHLORID 100 MG/100 ML PLAST..BAG IVPB SCH ×3 (04:25→23:23)
[2021-01-03 06:31] LABS: BASO % 0.2 % (0-2.0); HEMATOCRIT 37.9 % (35.4-49); HEMOGLOBIN 12.2 GM/dL (11.7-16.9); LYMPH % 0.6 % (8-40); MCH 27.8 pg (25.7-33.7); MCHC 32.1 g/dl (32.0-35.9); MEAN CELL VOLUME 86.6 fl (80-96); MEAN PLT VOLUME 10.1 fl (7.5-11.1); NEUT % 96.2 % (42.8-82.8); PLATELET COUNT 173 K/MM3 (134-434); RBC 4.38 M/mm3 (4.00-5.60); RDW 14.2 % (11.9-15.9); WHITE BLOOD COUNT 29.9 K/mm3 (4.0-10.0)
[2021-01-03] MEDS: INSULIN SLIDING SCALE (NOVOLOG) 1 VIAL SQ SCH ×3 (06:49→16:56)
[2021-01-03 06:50] LABS: CALCIUM 8.5 mg/dL (8.5-10.1)
[2021-01-03 06:54] LABS: CREATININE 1.1 mg/dL (0.55-1.3)
[2021-01-03 06:55] LABS: TOT PROT 4.7 g/dl (6.4-8.2)
[2021-01-03 06:57] LABS: BILIRUBIN,TOTAL 0.7 mg/dL (0.2-1)
[2021-01-03] MEDS ORDERED: INSULIN REGULAR HUMAN 100 UNITS/ML *VIAL IVPUSH ONE (09:31)
[2021-01-03] MEDS ORDERED: SODIUM BICARBONATE 8.4% 50 MEQ/50 ML DISP.SYRIN IVPUSH ONE (09:31)
[2021-01-03] MEDS ORDERED: DEXTROSE 50%-WATER - 25 GM/50 ML VIAL IVPUSH ONE (09:32)
[2021-01-03] MEDS: ENOXAPARIN NA (PORCINE) 60 MG/0.6 ML DISP.SYRIN SQ SCH (10:41)
[2021-01-03] MEDS: DEXAMETHASONE SOD PHOSPHATE 4 MG/1 ML VIAL IVPUSH SCH (10:42)
[2021-01-03] MEDS: CHOLECALCIFEROL (VIT D3) 400 UNIT (10 MCG) TABLET PO SCH (10:43)
[2021-01-03] MEDS: PANTOPRAZOLE SODIUM 40 MG VIAL IVPUSH SCH (10:43)
[2021-01-03] MEDS: ZINC SULFATE 220 MG CAPSULE (FP) PO SCH (10:43)
[2021-01-03] MEDS: ASCORBIC ACID 500 MG TABLET (FP) PO SCH ×2 (10:43→23:23)
[2021-01-03 10:51] LABS: ANISOCYTOSIS 0; HELMET CELLS 0; HOWELL-JOLLY BODIES 0; MACROCYTOSIS 0; OVALOCYTE 0; PLATELET ESTIMATE NORMAL; ROULEAU 0; SICKELED CELLS 0; TARGET CELLS 0; TEAR DROP CELLS 0; TOXIC GRANULATION 0
[2021-01-03] MEDS ORDERED: DEXTROSE 50%-WATER 25 GM/50 ML DISP.SYRIN ONE (10:57)
[2021-01-03] MEDS: DOPAMINE 400 MG/D5W - 400,000 MCG/250 ML INFUS.BAG IVPB SCH (11:30)
[2021-01-03] MEDS: NOREPINEPHRINE NS PREMIX 8,000 MCG/500 ML BAG IVPB SCH (11:31)
[2021-01-03] MEDS: VECURONIUM BROMIDE 100 MG/100 ML BAG IVPB SCH ×2 (11:36→15:43)
[2021-01-03] MEDS: SODIUM ZIRCONIUM CYCLOSILICATE (LOKELMA) 5 GM PACKET PO SCH (15:43)
[2021-01-03] MEDS: SODIUM CHLORIDE 1,000 ML IV SCH (18:59)
[2021-01-03] MEDS: CHLORHEXIDINE GLUCONATE 4% CLEANSER FOR DECOLONIZATION TP SCH (23:16)
[2021-01-04] MEDS: INSULIN SLIDING SCALE (NOVOLOG) 1 VIAL SQ SCH ×5 (00:11→21:29)
[2021-01-04 06:52] LABS: BASO % 0.3 % (0-2.0); HEMATOCRIT 36.1 % (35.4-49); HEMOGLOBIN 11.3 GM/dL (11.7-16.9); LYMPH % 0.4 % (8-40); MCHC 31.3 g/dl (32.0-35.9); MEAN CELL VOLUME 89.2 fl (80-96); MEAN PLT VOLUME 9.6 fl (7.5-11.1); MONO % 2.6 % (3.8-10.2); NEUT % 96.7 % (42.8-82.8); PLATELET COUNT 160 K/MM3 (134-434); RBC 4.04 M/mm3 (4.00-5.60); RDW 14.4 % (11.9-15.9)
[2021-01-04 06:58] LABS: WHITE BLOOD COUNT 36.3 K/mm3 (4.0-10.0)
[2021-01-04 07:09] LABS: CHLORIDE 102 mmol/L (98-107); SODIUM 132 mmol/L (136-145)
[2021-01-04 07:11] LABS: BLOOD UREA NITROGEN 50.8 mg/dL (7-18); CALCIUM 7.9 mg/dL (8.5-10.1)
[2021-01-04 07:12] LABS: ALBUMIN 1.9 g/dl (3.4-5.0); CO2 24 mmol/L (21-32); GLUCOSE,RANDOM 115 mg/dL (74-106); MAGNESIUM 1.8 mg/dL (1.8-2.4)
[2021-01-04 07:14] LABS: SGPT/ALT 39 U/L (13-61)
[2021-01-04 07:15] LABS: PHOSPHOROUS 5.4 mg/dL (2.5-4.9); SGOT/AST 28 U/L (15-37)
[2021-01-04 07:16] LABS: BILIRUBIN,TOTAL 0.2 mg/dL (0.2-1); TOT PROT 4.5 g/dl (6.4-8.2)
[2021-01-04 07:17] LABS: ALK PHOS 133 U/L (45-117)
[2021-01-04 07:19] LABS: ANION GAP 6 MMOL/L (8-16)
[2021-01-04] MEDS ORDERED: DEXTROSE 50%-WATER - 25 GM/50 ML VIAL IVPUSH ONE (08:23)
[2021-01-04] MEDS ORDERED: PT OWN MED DRAWER 7, Y5N ONE (08:40)
[2021-01-04] MEDS ORDERED: SODIUM BICARBONATE 8.4% 50 MEQ/50 ML DISP.SYRIN IVPUSH ONE ×2 (09:00→15:47)
[2021-01-04] MEDS ORDERED: INSULIN REGULAR HUMAN 100 UNITS/ML *VIAL IVPUSH ONE ×2 (09:00→15:47)
[2021-01-04] MEDS ORDERED: DEXTROSE 50%-WATER 25 GM/50 ML DISP.SYRIN ONE ×2 (09:14→16:36)
[2021-01-04 09:23] LABS: ANISOCYTOSIS 0; MACROCYTOSIS 0; PLATELET ESTIMATE DECREASED
[2021-01-04] MEDS: SODIUM ZIRCONIUM CYCLOSILICATE (LOKELMA) 5 GM PACKET PO SCH (09:32)
[2021-01-04] MEDS: DEXAMETHASONE SOD PHOSPHATE 4 MG/1 ML VIAL IVPUSH SCH (09:40)
[2021-01-04] MEDS: PANTOPRAZOLE SODIUM 40 MG VIAL IVPUSH SCH (09:40)
[2021-01-04] MEDS: ZINC SULFATE 220 MG CAPSULE (FP) PO SCH (09:41)
[2021-01-04] MEDS: MIDAZOLAM IN 0.9 % SOD.CHLORID 100 MG/100 ML PLAST..BAG IVPB SCH ×2 (09:41→18:44)
[2021-01-04] MEDS: ASCORBIC ACID 500 MG TABLET (FP) PO SCH ×2 (09:41→21:29)
[2021-01-04] MEDS: FENTANYL IVPB 500 MCG/100 ML BAG IVPB SCH ×2 (09:42→18:44)
[2021-01-04] MEDS: VECURONIUM BROMIDE 100 MG/100 ML BAG IVPB SCH ×2 (09:42→10:00)
[2021-01-04] MEDS: CHOLECALCIFEROL (VIT D3) 400 UNIT (10 MCG) TABLET PO SCH (10:48)
[2021-01-04] MEDS: VASOPRESSIN 40 UNITS in SODIUM CHLORIDE 98 ML IVPB SCH (10:49)
[2021-01-04 15:35] LABS: CHLORIDE 102 mmol/L (98-107); SODIUM 134 mmol/L (136-145)
[2021-01-04 15:37] LABS: BLOOD UREA NITROGEN 55.1 mg/dL (7-18); CALCIUM 8.2 mg/dL (8.5-10.1); CO2 26 mmol/L (21-32); GLUCOSE,RANDOM 125 mg/dL (74-106)
[2021-01-04 15:40] LABS: CREATININE 1.9 mg/dL (0.55-1.3)
[2021-01-04 15:45] LABS: ANION GAP 6 MMOL/L (8-16)
[2021-01-04] MEDS ORDERED: DEXTROSE 50%-WATER 25 GM/50 ML DISP.SYRIN IVPUSH ONE (15:48)
[2021-01-04] MEDS ORDERED: SODIUM CHLORIDE 1,000 ML IV STA (15:49)
[2021-01-04] MEDS ORDERED: FUROSEMIDE 40 MG/4 ML INJECTABLE VIAL IVPUSH ONE (15:49)
[2021-01-04] MEDS ORDERED: CALCIUM GLUCONATE 10% - 1,000 MG/10 ML VIAL IVPB ONE (15:50)
[2021-01-04] MEDS ORDERED: CALCIUM GLUCONATE 10% - 1,000 MG/10 ML VIAL ONE (16:36)
[2021-01-04] MEDS: SODIUM CHLORIDE 1,000 ML IV SCH (16:49)
[2021-01-04] MEDS: SODIUM ZIRCONIUM CYCLOSILICATE (LOKELMA) 10 GM PACKET PO SCH ×2 (16:51→21:29)
[2021-01-04] MEDS: CHLORHEXIDINE GLUCONATE 4% CLEANSER FOR DECOLONIZATION TP SCH (21:29)
[2021-01-05 05:45] LABS: ARTERIAL BLD GAS O2 SATURATION 86.3 mmHg (95-98); ARTERIAL BLOOD GAS BASE EXCESS -5.4 mmol/L (-2-2)
[2021-01-05 05:48] LABS: ARTERIAL BLOOD GAS pH 7.116 (7.350-7.450)
[2021-01-05 05:49] LABS: VENT MODE A/C; VENT RATE 30
[2021-01-05] MEDS: INSULIN SLIDING SCALE (NOVOLOG) 1 VIAL SQ SCH ×4 (06:40→21:57)
[2021-01-05 07:30] LABS: BASO % 0.3 % (0-2.0); HEMATOCRIT 30.9 % (35.4-49); HEMOGLOBIN 9.6 GM/dL (11.7-16.9); LYMPH % 0.5 % (8-40); MCH 27.6 pg (25.7-33.7); MEAN CELL VOLUME 89.1 fl (80-96); MEAN PLT VOLUME 9.7 fl (7.5-11.1); MONO % 4.7 % (3.8-10.2); NEUT % 94.5 % (42.8-82.8); PLATELET COUNT 162 K/MM3 (134-434); RBC 3.46 M/mm3 (4.00-5.60); RDW 14.9 % (11.9-15.9)
[2021-01-05 07:52] LABS: WHITE BLOOD COUNT 34.1 K/mm3 (4.0-10.0)
[2021-01-05 07:55] LABS: ALBUMIN 1.8 g/dl (3.4-5.0); BLOOD UREA NITROGEN 56.1 mg/dL (7-18); CALCIUM 8.3 mg/dL (8.5-10.1); MAGNESIUM 1.7 mg/dL (1.8-2.4)
[2021-01-05 07:58] LABS: CREATININE 1.7 mg/dL (0.55-1.3)
[2021-01-05 07:59] LABS: PHOSPHOROUS 4.6 mg/dL (2.5-4.9)
[2021-01-05 08:00] LABS: BILIRUBIN,TOTAL 0.2 mg/dL (0.2-1); TOT PROT 4.5 g/dl (6.4-8.2)
[2021-01-05] MEDS ORDERED: MAGNESIUM SULF 50% (8.12 MEQ/2 ML-1 GM VIAL) IVPB ONE (08:28)
[2021-01-05] MEDS: DEXAMETHASONE SOD PHOSPHATE 4 MG/1 ML VIAL IVPUSH SCH (09:37)
[2021-01-05] MEDS: ASCORBIC ACID 500 MG TABLET (FP) PO SCH ×2 (09:38→21:35)
[2021-01-05] MEDS: ZINC SULFATE 220 MG CAPSULE (FP) PO SCH (09:38)
[2021-01-05] MEDS: PANTOPRAZOLE SODIUM 40 MG VIAL IVPUSH SCH (09:38)
[2021-01-05] MEDS: MIDAZOLAM IN 0.9 % SOD.CHLORID 100 MG/100 ML PLAST..BAG IVPB SCH ×2 (09:41→21:36)
[2021-01-05] MEDS: FENTANYL IVPB 500 MCG/100 ML BAG IVPB SCH ×2 (09:42→21:36)
[2021-01-05 10:26] LABS: ANISOCYTOSIS 1+; MACROCYTOSIS 0; PLATELET ESTIMATE NORMAL
[2021-01-05] MEDS: VECURONIUM BROMIDE 100 MG/100 ML BAG IVPB SCH (10:51)
[2021-01-05] MEDS: CHOLECALCIFEROL (VIT D3) 400 UNIT (10 MCG) TABLET PO SCH (10:52)
[2021-01-05] MEDS: SODIUM CHLORIDE 1,000 ML IV SCH ×2 (10:53→16:24)
[2021-01-05] MEDS: SODIUM ZIRCONIUM CYCLOSILICATE (LOKELMA) 10 GM PACKET PO SCH ×2 (10:56→21:35)
[2021-01-05] MEDS: ENOXAPARIN NA (PORCINE) 40 MG/0.4 ML DISP.SYRIN SQ SCH (16:24)
[2021-01-05] MEDS ORDERED: SODIUM CHLORIDE NASAL SPRAY 44 ML BOTTLE NS PRN (16:54)
[2021-01-05] MEDS: NOREPINEPHRINE NS PREMIX 8,000 MCG/500 ML BAG IVPB SCH (18:19)
[2021-01-05] MEDS: CHLORHEXIDINE GLUCONATE 4% CLEANSER FOR DECOLONIZATION TP SCH (21:34)
[2021-01-06 07:18] LABS: BASO % 0.2 % (0-2.0); HEMOGLOBIN 9.3 GM/dL (11.7-16.9); LYMPH % 0.5 % (8-40); MCH 27.9 pg (25.7-33.7); MCHC 31.1 g/dl (32.0-35.9); MEAN CELL VOLUME 89.5 fl (80-96); MEAN PLT VOLUME 8.8 fl (7.5-11.1); MONO % 3.1 % (3.8-10.2); NEUT % 96.2 % (42.8-82.8); PLATELET COUNT 163 K/MM3 (134-434); RBC 3.35 M/mm3 (4.00-5.60); RDW 14.9 % (11.9-15.9); WHITE BLOOD COUNT 24.9 K/mm3 (4.0-10.0)
[2021-01-06 07:48] LABS: CALCIUM 8.8 mg/dL (8.5-10.1)
[2021-01-06 07:49] LABS: BLOOD UREA NITROGEN 55.6 mg/dL (7-18); MAGNESIUM 2.1 mg/dL (1.8-2.4)
[2021-01-06 07:51] LABS: PHOSPHOROUS 4.1 mg/dL (2.5-4.9)
[2021-01-06 07:53] LABS: BILIRUBIN,TOTAL 0.2 mg/dL (0.2-1); CREATININE 1.5 mg/dL (0.55-1.3); TOT PROT 4.6 g/dl (6.4-8.2)
[2021-01-06] MEDS: INSULIN SLIDING SCALE (NOVOLOG) 1 VIAL SQ SCH ×3 (09:47→22:54)
[2021-01-06] MEDS ORDERED: FENTANYL IVPB 500 MCG/100 ML BAG IVPB ONE (09:58)
[2021-01-06] MEDS: PANTOPRAZOLE SODIUM 40 MG VIAL IVPUSH SCH (10:04)
[2021-01-06] MEDS: SODIUM ZIRCONIUM CYCLOSILICATE (LOKELMA) 10 GM PACKET PO SCH ×2 (10:04→22:56)
[2021-01-06] MEDS: ENOXAPARIN NA (PORCINE) 40 MG/0.4 ML DISP.SYRIN SQ SCH (10:05)
[2021-01-06] MEDS: DEXAMETHASONE SOD PHOSPHATE 4 MG/1 ML VIAL IVPUSH SCH (10:05)
[2021-01-06] MEDS: FENTANYL IVPB 500 MCG/100 ML BAG IVPB SCH (10:06)
[2021-01-06] MEDS: ASCORBIC ACID 500 MG TABLET (FP) PO SCH ×2 (10:06→22:56)
[2021-01-06] MEDS: ZINC SULFATE 220 MG CAPSULE (FP) PO SCH (10:06)
[2021-01-06] MEDS ORDERED: PT OWN MED DRAWER 7, Y5N ONE ×2 (10:22→19:57)
[2021-01-06] MEDS: CHOLECALCIFEROL (VIT D3) 400 UNIT (10 MCG) TABLET PO SCH (10:22)
[2021-01-06 10:25] LABS: ANISOCYTOSIS 0; MACROCYTOSIS 0; PLATELET ESTIMATE DECREASED
[2021-01-06] MEDS ORDERED: MIDAZOLAM IN 0.9 % SOD.CHLORID 1 MG/1 ML PLAST..BAG ONE ×2 (14:18→19:56)
[2021-01-06] MEDS ORDERED: fentaNYL CITRATE 250 MCG/5 ML VIAL ONE (19:56)
[2021-01-06] MEDS: SODIUM CHLORIDE 1,000 ML IV SCH (20:11)
[2021-01-06] MEDS: NOREPINEPHRINE NS PREMIX 8,000 MCG/500 ML BAG IVPB SCH (22:55)
[2021-01-06] MEDS: VASOPRESSIN 40 UNITS in SODIUM CHLORIDE 98 ML IVPB SCH (22:55)
[2021-01-06] MEDS: CHLORHEXIDINE GLUCONATE 4% CLEANSER FOR DECOLONIZATION TP SCH (22:56)
[2021-01-06] MEDS: MIDAZOLAM 100 MG in SODIUM CHLORIDE 100 ML IVPB SCH (22:56)
[2021-01-06] MEDS: FENTANYL NS IVPB 500 MCG/100 ML BAG IVPB SCH (22:56)
[2021-01-06] MEDS: VECURONIUM BROMIDE 100 MG/100 ML BAG IVPB SCH (22:56)
[2021-01-07] MEDS ORDERED: MIDAZOLAM IN 0.9 % SOD.CHLORID 1 MG/1 ML PLAST..BAG ONE ×2 (02:42→10:20)
[2021-01-07] MEDS: INSULIN SLIDING SCALE (NOVOLOG) 1 VIAL SQ SCH ×3 (06:54→18:12)
[2021-01-07] MEDS: FENTANYL IVPB 500 MCG/100 ML BAG IVPB SCH ×2 (07:00→18:10)
[2021-01-07 07:28] LABS: BASO % 0.8 % (0-2.0); CALCIUM 9.2 mg/dL (8.5-10.1); EOS % 0.2 % (0-4.5); HEMATOCRIT 30.9 % (35.4-49); HEMOGLOBIN 9.5 GM/dL (11.7-16.9); LYMPH % 0.5 % (8-40); MCH 27.8 pg (25.7-33.7); MCHC 30.7 g/dl (32.0-35.9); MEAN CELL VOLUME 90.5 fl (80-96); MEAN PLT VOLUME 8.9 fl (7.5-11.1); MONO % 2.4 % (3.8-10.2); NEUT % 96.1 % (42.8-82.8); PLATELET COUNT 161 K/MM3 (134-434); RBC 3.42 M/mm3 (4.00-5.60); RDW 15.1 % (11.9-15.9); WHITE BLOOD COUNT 27.2 K/mm3 (4.0-10.0)
[2021-01-07 07:29] LABS: ALBUMIN 2.1 g/dl (3.4-5.0); BLOOD UREA NITROGEN 54.8 mg/dL (7-18); MAGNESIUM 1.9 mg/dL (1.8-2.4)
[2021-01-07 07:32] LABS: CREATININE 1.3 mg/dL (0.55-1.3); PHOSPHOROUS 3.4 mg/dL (2.5-4.9)
[2021-01-07 07:33] LABS: BILIRUBIN,TOTAL 0.2 mg/dL (0.2-1)
[2021-01-07 07:34] LABS: TOT PROT 4.8 g/dl (6.4-8.2)
[2021-01-07] MEDS ORDERED: PT OWN MED DRAWER 7, Y5N ONE (09:10)
[2021-01-07] MEDS: PANTOPRAZOLE SODIUM 40 MG VIAL IVPUSH SCH (10:10)
[2021-01-07] MEDS: CHOLECALCIFEROL (VIT D3) 400 UNIT (10 MCG) TABLET PO SCH (10:11)
[2021-01-07] MEDS: ENOXAPARIN NA (PORCINE) 40 MG/0.4 ML DISP.SYRIN SQ SCH (10:11)
[2021-01-07] MEDS: SODIUM ZIRCONIUM CYCLOSILICATE (LOKELMA) 10 GM PACKET PO SCH (10:11)
[2021-01-07] MEDS: DEXAMETHASONE SOD PHOSPHATE 4 MG/1 ML VIAL IVPUSH SCH (10:11)
[2021-01-07] MEDS: ZINC SULFATE 220 MG CAPSULE (FP) PO SCH (10:11)
[2021-01-07] MEDS: SODIUM CHLORIDE 1,000 ML IV SCH ×2 (10:13→18:12)
[2021-01-07] MEDS: ASCORBIC ACID 500 MG TABLET (FP) PO SCH ×2 (10:13→22:00)
[2021-01-07 10:14] LABS: ANISOCYTOSIS 1+; MACROCYTOSIS 0; PLATELET ESTIMATE NORMAL
[2021-01-07] MEDS: MIDAZOLAM IN 0.9 % SOD.CHLORID 100 MG/100 ML PLAST..BAG IVPB SCH (10:20)
[2021-01-07] MEDS ORDERED: DOCUSATE SODIUM 100 MG CAPSULE (FP) PO PRN (13:14)
[2021-01-07] MEDS: MIDAZOLAM 100 MG in SODIUM CHLORIDE 100 ML IVPB SCH (14:10)
[2021-01-07 15:23] VITALS: BMI 22.1
[2021-01-07] MEDS ORDERED: DOCUSATE NA 100 MG/10 ML UNIT-DOSE CUPS PO PRN (16:34)
[2021-01-07] MEDS: VECURONIUM BROMIDE 100 MG/100 ML BAG IVPB SCH (18:11)
[2021-01-07] MEDS: ENOXAPARIN NA (PORCINE) 60 MG/0.6 ML DISP.SYRIN SQ SCH (22:00)
[2021-01-07] MEDS ORDERED: ACETAMINOPHEN 1000 MG/100 ML VIAL (NON FORMULARY) IVPB ONE (22:40)
[2021-01-08] MEDS: NOREPINEPHRINE NS PREMIX 8,000 MCG/500 ML BAG IVPB SCH (01:56)
[2021-01-08] MEDS: SODIUM ZIRCONIUM CYCLOSILICATE (LOKELMA) 10 GM PACKET PO SCH ×2 (01:57→09:23)
[2021-01-08] MEDS: FENTANYL NS IVPB 500 MCG/100 ML BAG IVPB SCH (01:57)
[2021-01-08] MEDS: MIDAZOLAM 100 MG in SODIUM CHLORIDE 100 ML IVPB SCH ×2 (01:57→13:36)
[2021-01-08] MEDS: CHLORHEXIDINE GLUCONATE 4% CLEANSER FOR DECOLONIZATION TP SCH (01:57)
[2021-01-08] MEDS: VECURONIUM BROMIDE 100 MG/100 ML BAG IVPB SCH (01:57)
[2021-01-08] MEDS: INSULIN SLIDING SCALE (NOVOLOG) 1 VIAL SQ SCH ×3 (01:58→11:50)
[2021-01-08] MEDS ORDERED: FUROSEMIDE 40 MG/4 ML INJECTABLE VIAL IVPUSH ONE (02:20)
[2021-01-08] MEDS ORDERED: MIDAZOLAM IN 0.9 % SOD.CHLORID 1 MG/1 ML PLAST..BAG ONE ×2 (03:14→13:33)
[2021-01-08] MEDS ORDERED: VECURONIUM BROMIDE 100 MG/100 ML BAG ONE (03:14)
[2021-01-08 04:58] LABS: ARTERIAL BLD GAS O2 SATURATION 51.1 mmHg (95-98); ARTERIAL BLOOD GAS BASE EXCESS -8.6 mmol/L (-2-2)
[2021-01-08 05:01] LABS: ARTERIAL BLOOD GAS pH 7.061 (7.350-7.450)
[2021-01-08 05:02] LABS: ALLENS TEST POSITIVE; ARTERIAL BLOOD GAS PO2 38.8 mmHg (80-100)
[2021-01-08 05:03] LABS: VENT MODE A/C; VENT RATE 30
[2021-01-08] MEDS ORDERED: SODIUM BICARBONATE 8.4% 50 MEQ/50 ML DISP.SYRIN IVPUSH ONE (05:11)
[2021-01-08] MEDS: VASOPRESSIN 40 UNITS in SODIUM CHLORIDE 98 ML IVPB SCH (07:04)
[2021-01-08 08:51] LABS: BASO % 0.4 % (0-2.0); HEMATOCRIT 29.7 % (35.4-49); HEMOGLOBIN 8.7 GM/dL (11.7-16.9); LYMPH % 0.6 % (8-40); MCH 27.2 pg (25.7-33.7); MCHC 29.1 g/dl (32.0-35.9); MEAN CELL VOLUME 93.4 fl (80-96); MEAN PLT VOLUME 9.5 fl (7.5-11.1); MONO % 2.6 % (3.8-10.2); NEUT % 96.4 % (42.8-82.8); PLATELET COUNT 151 K/MM3 (134-434); RBC 3.18 M/mm3 (4.00-5.60); RDW 15.3 % (11.9-15.9)
[2021-01-08 08:59] LABS: WHITE BLOOD COUNT 37.8 K/mm3 (4.0-10.0)
[2021-01-08 09:14] LABS: ALBUMIN 1.8 g/dl (3.4-5.0); BLOOD UREA NITROGEN 59.1 mg/dL (7-18); CALCIUM 9.1 mg/dL (8.5-10.1)
[2021-01-08 09:16] LABS: CREATININE 1.5 mg/dL (0.55-1.3); PHOSPHOROUS 4.3 mg/dL (2.5-4.9)
[2021-01-08 09:18] LABS: BILIRUBIN,TOTAL 0.3 mg/dL (0.2-1); TOT PROT 4.5 g/dl (6.4-8.2)
[2021-01-08] MEDS: DEXAMETHASONE SOD PHOSPHATE 4 MG/1 ML VIAL IVPUSH SCH (09:22)
[2021-01-08] MEDS: PANTOPRAZOLE SODIUM 40 MG VIAL IVPUSH SCH (09:23)
[2021-01-08] MEDS: ENOXAPARIN NA (PORCINE) 60 MG/0.6 ML DISP.SYRIN SQ SCH (09:23)
[2021-01-08] MEDS: ASCORBIC ACID 500 MG TABLET (FP) PO SCH (09:23)
[2021-01-08] MEDS: ZINC SULFATE 220 MG CAPSULE (FP) PO SCH (09:24)
[2021-01-08] MEDS: CHOLECALCIFEROL (VIT D3) 400 UNIT (10 MCG) TABLET PO SCH (09:34)
[2021-01-08 11:12] LABS: ANISOCYTOSIS 1+; MACROCYTOSIS 0; OVALOCYTE 1+; PLATELET ESTIMATE DECREASED; TEAR DROP CELLS 1+; TOXIC GRANULATION 2+
[2021-01-08] MEDS ORDERED: NOREPINEPHRINE BITARTRATE 8,000 MCG/500 ML BAG IVPB ONE (14:37)
[2021-01-08 16:26] VITALS: BP 61/16; PULSE 0; TEMP 101.3
== END 2021-01-08 15:35 | disposition expired | DRG 207 ==
LOC: JER 15:11 → JERBED 20:28 → J8W 21:45 → J4S 12-25 14:11 → JICU 12-27 14:11
PROVIDERS: ADMIT Internal Medicine; ATTEND Internal Medicine
PROC: XW13325 Transfusion of Convalescent Plasma (Nonautologous) into Peripheral Vein, Percutaneous Approach, New Technology Group 5 (ICD-10-PCS; 2020-12-21)
PROC: XW033H5 Introduction of Tocilizumab into Peripheral Vein, Percutaneous Approach, New Technology Group 5 (ICD-10-PCS; 2020-12-21)
PROC: 5A1955Z Respiratory Ventilation, Greater than 96 Consecutive Hours (ICD-10-PCS; principal; 2020-12-29)
PROC: 0BH17EZ Insertion of Endotracheal Airway into Trachea, Via Natural or Artificial Opening (ICD-10-PCS; 2020-12-29)
PROC: 0DH673Z Insertion of Infusion Device into Stomach, Via Natural or Artificial Opening (ICD-10-PCS; 2020-12-29)
PROC: 05HN33Z Insertion of Infusion Device into Left Internal Jugular Vein, Percutaneous Approach (ICD-10-PCS; 2020-12-30)
PROC: B544ZZA Ultrasonography of Left Jugular Veins, Guidance (ICD-10-PCS; 2020-12-30)
DX: U07.1 COVID-19 (principal); J80 Acute respiratory distress syndrome; J12.82 Pneumonia due to coronavirus disease 2019; G92 Toxic encephalopathy; A41.9 Sepsis, unspecified organism; R65.21 Severe sepsis with septic shock; N17.9 Acute kidney failure, unspecified; E87.0 Hyperosmolality and hypernatremia; I82.4Z1 Acute embolism and thrombosis of unspecified deep veins of right distal lower extremity; E87.5 Hyperkalemia; D72.829 Elevated white blood cell count, unspecified; N18.9 Chronic kidney disease, unspecified; N28.1 Cyst of kidney, acquired; D72.819 Decreased white blood cell count, unspecified; D69.6 Thrombocytopenia, unspecified
CPT/HCPCS: 31500; 36415; 36430; 36600; 70450-TC; 71045-TC-FY; 76700-TC; 76775-TC; 80048; 80053; 81003; 82550; 82570; 82728; 82803; 82962; 83036; 83605; 83615; 83735; 83935; 83970; 84100; 84156; 84300; 84484; 85025; 85027; 85379; 85610; 85651; 85730; 86140; 86769; 86850; 86900; 86901; 87040; 87070; 87077; 87086; 87186; 87205; 87389; 87522; 87804; 87899; 93005; 93010; 93970-TC; 94002; 97116-GP; 97162-GP; 99285-25; C9803; J0131; J1644; J3262; P9017; U0003; U0005